=== PATIENT | female | born 1950 | race Caucasian/White ===

== ENCOUNTER 2023-02-19 11:00 | Emergency (ER) | payer MEDICARE, SELFPAY ==
--- NOTE | ~2023-02-19 | XR_ITS ---
Clinical Indication: Chest pain PA and lateral views of the chest: Comparison: None Findings: There is probable bibasilar atelectatic change. Calcified right upper lobe granuloma noted. Cardiomediastinal silhouette is within normal limits. Bones and soft tissues are unremarkable. Impression: Probable bibasilar atelectatic change. Reviewed, dictated and finalized at location . Impression: Probable bibasilar atelectatic change.
--- NOTE | ~2023-02-19 | CT_ITS ---
EXAMINATION: CTA chest abdomen DATE: 02/19/2023 15:15 INDICATION: Trauma. TECHNIQUE: Computed tomographic angiography (CTA) of the chest and abdomen was performed with 100 mL Omnipaque-350 intravenous contrast. The dose-length product was 1066.88 mGy-cm. Maximum intensity pro jection 3D-reconstructions of the aorta and other arteries were constructed by the technologist on a separate workstation. COMPARISON: None. FINDINGS: CHEST CTA: There is mild atherosclerosis. Heart size normal. No significant pleural or pericardial effusion. No large central pulmonary embolism.There is a 6 mm right upper lobe nodule. There is a 3 mm right middl e lobe nodule. There is dependent atelectasis. There are calcified granulomas of the right upper lobe . No evidence for aortic aneurysm or dissection. There are multiple ill-defined nodules of the left t hyroid lobe which is enlarged and contains coarse calcifications, consistent with multinodular goiter . Small hiatal hernia. ABDOMEN CTA: No evidence for aortic aneurysm or dissection. The celiac axis, SMA, renal arteries and EDMUND are paten t. Gallbladder is not identified, likely surgically absent. Fatty infiltration of the liver. The sple en contains multiple calcified granulomas. The pancreas is unremarkable. There are nonobstructing lef t renal stones. There is left renal cysts. There are irregular soft tissue masses in the mesentery me asuring up to 3.2 cm, image 184 and 4.1 cm, image 171. IMPRESSION: 1. No acute vascular abnormality. 2: Mesenteric soft tissue masses, largest measuring 4.1 cm. Differential diagnosis includes a static disease, lymphoma, carcinoid tumors, spindle cell tumors. 3: Right upper lobe nodule measuring 6 mm, follow-up low dose CT chest in 6 months recommended. Reviewed, dictated and finalized at location B. IMPRESSION: 1. No acute vascular abnormality. 2: Mesenteric soft tissue masses, largest measuring 4.1 cm. Differential diagno sis includes a static disease, lymphoma, carcinoid tumors, spindle cell tumors. 3: Right upper lobe nodule measuring 6 mm, follow-up low dose CT chest in 6 mo nths recommended.
[2023-02-19 11:11] VITALS: BP 136/89; PULSE 88; RESP 16; TEMP 35.5; O2SAT 95
--- NOTE | 2023-02-19 11:16 | ECG_ITS ---
Measurements Intervals [place] Rate: 91 P: 62 MN: 173 QRS: -58 QRSD: 92 T: 26 QT: 359 QTc: 442 Interpretive Statements SINUS RHYTHM POOR R-WAVE PROGRESSION CONSIDER PREVIOUS INFERIOR WALL [place] ABNORMAL ECG NO PREVIOUS ECG AVAILABLE FOR COMPARISON Electronically Signed On 02-19-2023 14:55:45 CDT by Arsh Segovia M.D.
[2023-02-19 11:31] LABS: Basophils Absolute Auto 0.1 K/mm3 (0.0-0.1); Basophils Percent Auto 0.4 % (0.2-1.2); Eosinophils Percent Auto 0.3 % (0-4.4); Hemoglobin 12.5 g/dL (12.0-15.0); Immature Granulocyte Absolute 0.05 K/mm3 (0.00-0.031); Immature Granulocyte Percent A 0.4 % (0-0.5); Lymphocytes Absolute Auto 1.12 K/mm3 (0.9-3.2); Lymphocytes Percent Auto 9.6 % (18.3-44.2); Mean Corpuscular HGB Conc 31.3 g/dl (32-36); Mean Corpuscular Hemoglobin 28.4 pg (26-34); Mean Corpuscular Volume 90.9 fl (80-100); Mean Platelet Volume 9.2 fl (7.4-10.4); Monocytes Absolute Auto 0.9 K/mm3 (0.1-0.6); Monocytes Percent Auto 7.5 % (2.6-8.5); Neutrophils Absolute Auto 9.5 K/mm3 (1.3-6.7); Neutrophils Percent Auto 81.8 % (45.5-73.1); Platelet Count Result 367 k/mm3 (150-375); Red Cell Distribution Width 16.2 % (11.5-14.5); White Blood Count 11.7 K/mm3 (4.5-10.0)
[2023-02-19 11:40] LABS: Alanine Aminotransferase 49 U/L (6-35); Albumin Level 4.4 g/dL (3.5-5.1); Alkaline Phosphatase 72 U/L (38-126); Anion Gap 8 mmol/L (8-16); Aspartate Amino Transferase 35 U/L (14-36); Bilirubin,Total 0.9 mg/dL (0.2-1.3); Blood Urea Nitrogen 28 mg/dL (7-17); Calcium 9.9 mg/dL (8.4-10.2); Carbon Dioxide 29 mmol/L (22-30); Chloride 99 mmol/L (98-107); Estimated CRCL calculation 64 ml/min; Estimated Glomerular Filt Rate > 60; Glucose 133 mg/dL (65-110); Lipase 45 U/L (23-300); Potassium 3.2 mmol/L (3.4-5.0); Sodium 136 mmol/L (137-145)
[2023-02-19 11:42] LABS: Prothrombin Time 13.8 Seconds (11.1-14.7)
[2023-02-19 11:43] LABS: Partial Thromboplastin Time 30.9 SECONDS (22.3-36.8)
[2023-02-19 11:52] LABS: Troponin I < 0.012 ng/mL (0.000-0.034)
--- NOTE | 2023-02-19 13:56 | ED.GENADULT ---
HPI - General Adult General Chief complaint: Chest Pain <Carmenza Delgado August, BUSINESS SUPPORT PROFESSIONAL - Last Filed: 02/19/23 14:00> Stated complaint: fall X2 in the last 3 days-rib pain <Carmenza Delgado August, BUSINESS SUPPORT PROFESSIONAL - Last Filed: 02/19/23 14:00> Time Seen by Provider: 02/19/23 14:26 <Carmenza Delgado August,N - Last Filed: 02/19/23 14:00> History of Present Illness HPI narrative: Lilly Rosario is a 72 y/o female with reported hx of osteo/ Crohns/ who presents with reports of two recent falls. She states that she h ad a mechanical ground level fall this last Sunday, felt a little pain but felt ok. She states that the following day she was limping from pain to her right hip and fell flat on her chest. She reports that ever since it has been hard to take a deep breath/ feels SOB. Her is with her who is a physician and he is concerned because her pain seemed worse today and would like CT of her chest to be sure. No abdominal pain/ nausea/vomiting/ fevers/ She denies hitting her head / no LOC / denies being on any blood thinner. <Carmenza Delgado August,N - Last Filed: 02/19/23 14:00> Related Data Allergies/adverse reactions: Allergies Allergy/AdvReac Type Severity Reaction Status Date / Time Penicillins Allergy Anaphylaxis Verified 02/19/23 11:01 <Carmenza Delgado August,N - Last Filed: 02/19/23 14:00> Review of Systems Review of Systems: All systems reviewed & are unremarkable except as noted in HPI and below <Stephanie Najera MD - Last Filed: 02/19/23 18:16> Exam Narrative: GENERAL: Well-appearing, no acute distress, very pleasant and cooperative HEAD: Normocephalic, atraumatic. EYES: PERRLA and EOMI. ENT: Grossly unremarkable NECK: Supple. CHEST: Clear to auscultation. No respiratory distress. HEART: Regular rate and rhythm. No murmur heard. Normal peripheral pulses. ABDOMEN: Soft, nontender, nondistended, normal active bowel sounds. EXTREMITIES: Normal range of motion. No edema. SKIN: Warm, dry, no rash. NEURO: No focal deficits. Alert and oriented x3. PSYCH: Normal mood and affect. <Stephanie Najera MD - Last Filed: 02/19/23 18:16> Course Vital Signs Vital signs: Vital Signs Temperature 96 F L 02/19/23 11:11 Pulse Rate 88 02/19/23 11:11 Respiratory Rate 16 02/19/23 11:11 Blood Pressure 136/89 02/19/23 11:11 Pulse Oximetry 95 02/19/23 11:11 Oxygen Delivery Room Air 02/19/23 11:11 Temperature 96 F L 02/19/23 11:11 Pulse Rate 78 02/19/23 15:07 Respiratory Rate 18 02/19/23 15:07 Blood Pressure 153/76 H 02/19/23 15:07 Pulse Oximetry 98 02/19/23 15:07 Oxygen Delivery Room Air 02/19/23 14:52 <Carmenza Singh, BUSINESS SUPPORT PROFESSIONAL - Last Filed: 02/19/23 14:00> Vital Signs Temperature 96 F L 02/19/23 11:11 Pulse Rate 88 02/19/23 11:11 Respiratory Rate 16 02/19/23 11:11 Blood Pressure 136/89 02/19/23 11:11 Pulse Oximetry 95 02/19/23 11:11 Oxygen Delivery Room Air 02/19/23 11:11 Temperature 96 F L 02/19/23 11:11 Pulse Rate 78 02/19/23 15:07 Respiratory Rate 18 02/19/23 15:07 Blood Pressure 153/76 H 02/19/23 15:07 Pulse Oximetry 98 02/19/23 15:07 Oxygen Delivery Room Air 02/19/23 14:52 <Stephanie Najera MD - Last Filed: 02/19/23 18:16> Medical Decision Making Vital Signs Vital Signs: Vital Signs Temperature 96 F L 02/19/23 11:11 Pulse Rate 88 02/19/23 11:11 Respiratory Rate 16 02/19/23 11:11 Blood Pressure 136/89 02/19/23 11:11 Pulse Oximetry 95 02/19/23 11:11 Oxygen Delivery Room Air 02/19/23 11:11 Temperature 96 F L 02/19/23 11:11 Pulse Rate 78 02/19/23 15:07 Respiratory Rate 18 02/19/23 15:07 Blood Pressure 153/76 H 02/19/23 15:07 Pulse Oximetry 98 02/19/23 15:07 Oxygen Delivery Room Air 02/19/23 14:52 <Carmenza Singh, BUSINESS SUPPORT PROFESSIONAL - Last Filed: 02/19/23 14:00> Vital Signs Temperature 96 F L 02/19/23 11:11 Pulse Rate 88 02/19/23 11:11 Respiratory Rate 16 02/19/
--- NOTE | 2023-02-19 14:51 | ED.CHESTPAIN ---
HPI - Chest Pain General Chief Complaint: Chest Pain Stated Complaint: fall X2 in the last 3 days-rib pain Time Seen by Provider: 02/19/23 14:26 History of Present Illness HPI narrative: Patient is a 72-year-old female with a history of Crohn's, osteoporosis presenting with chest pain. Patient states that she had 2 falls this last weekend. States that on Sunday she tripped and fell on her left side which resulted in residual left arm soreness. On Sunday she tripped again and she was unable to catch herself due to the pain in her left arm so she fell straight down onto her chest. She did not strike her head or lose consciousness. Since that time she has had worsening lower chest pain. Exacerbated by certain movements, coughing, deep breathing. She has been taking Aleve and some leftover Vicodin with some relief. Today the pain was more severe so she came in for evaluation. No fevers or chills, shortness of breath, leg swelling, abdominal pain, nausea or vomiting. No further complaints. Related Data Allergies Allergy/AdvReac Type Severity Reaction Status Date / Time Penicillins Allergy Anaphylaxis Verified 02/19/23 11:01 Review of Systems Review of Systems: All systems reviewed & are unremarkable except as noted in HPI and below Exam Narrative: GENERAL: Well-appearing, in no acute distress, pleasant and cooperative HEAD: Normocephalic, atraumatic. EYES: PERRLA and EOMI. ENT: Mucous membranes moist. NECK: Supple. CHEST: Clear to auscultation. No respiratory distress. Tenderness under bilateral breasts HEART: Regular rate and rhythm. ABDOMEN: Soft, nontender, nondistended EXTREMITIES: Normal range of motion. No edema. SKIN: Warm, dry, no rash. NEURO: No focal deficits. Alert and oriented x3. PSYCH: Normal mood and affect. Course Vital Signs Vital signs: Vital Signs Temperature 96 F L 02/19/23 11:11 Pulse Rate 88 02/19/23 11:11 Respiratory Rate 16 02/19/23 11:11 Blood Pressure 136/89 02/19/23 11:11 Pulse Oximetry 95 02/19/23 11:11 Oxygen Delivery Room Air 02/19/23 11:11 Temperature 96 F L 02/19/23 11:11 Pulse Rate 73 02/19/23 18:21 Respiratory Rate 16 02/19/23 18:21 Blood Pressure 149/69 H 10/23/23 18:21 Pulse Oximetry 97 02/19/23 18:21 Oxygen Delivery Room Air 02/19/23 14:52 MDM - Chest Pain MDM Narrative Medical decision making narrative: Patient is a 72-year-old female presenting with bilateral lower chest pain in the setting of a recent fall. Vital stable. Exam remarkable for the above. EKG per my interpretation shows normal sinus rhythm, left axis deviation, no ST elevations or depressions. Blood work with mild hypokalemia. Troponins undetectable. Lipase is normal. Chest x-ray without acute abnormalities. CTA chest abdomen obtained due to trauma. She does have acute fractures of her right seventh and eighth ribs anteriorly, consistent with her exam and her pain. They are also seeing mesenteric soft tissue masses. I spoke with the patient and her and they state that she had a CT scan about a year ago that did not show these masses. Patient does have a history of Crohn's disease, she follows very closely with GI in [place] which is where she lives. Patient will follow-up closely with her GI team regarding this finding. On reevaluation, she states that the pain is actually significantly improved. She feels comfortable going home. We will provide an incentive spirometer as well as prescription for Percocet. Strict return precautions given. Patient voiced understanding and is agreeable with plan. Discharged in stable condition. Differential Diagnosis Differential diagnosis: Likely fracture of rib, pneumothorax, atypical chest pain, costochondritis and chest pain Medical Records Data Attestation: I reviewed the patient's medical records. Lab Data Attestation: I reviewed the patient's lab results. 02/19/23 11:26 02/19/23 11:26
[2023-02-19 14:52] VITALS: PULSE 93; O2SAT 100
[2023-02-19] MEDS: KETOROLAC 30 MG/ML VIAL (*BKC) IV PUSH (14:59)
[2023-02-19] MEDS: SODIUM CHLORIDE 0.9% IV 1,000 ML 999 ML IV CONT (14:59)
[2023-02-19] MEDS: HYDROmorphone HCL INJ (*CRX) 1 MG/ML SYR IV PUSH (15:00)
[2023-02-19 15:07] VITALS: BP 153/76; PULSE 78; RESP 18; O2SAT 98
[2023-02-19 15:12] LABS: Troponin I < 0.012 ng/mL (0.000-0.034)
[2023-02-19] MEDS: oxyCODONE/ACETAMINOPHEN (*CRX) 5-325 MG TABLET 1 TABLET PO (18:19)
[2023-02-19 18:21] VITALS: BP 149/69; PULSE 73; RESP 16; O2SAT 97
== END 2023-02-19 19:00 | disposition home or self-care (01) ==
PROVIDERS: Emergency Medicine; Emergency Provider Emergency Medicine
DX: S22.41XA Multiple fractures of ribs, right side, initial encounter for closed fracture (principal); K66.8 Other specified disorders of peritoneum; K50.90 Crohn's disease, unspecified, without complications; M81.0 Age-related osteoporosis without current pathological fracture; R91.1 Solitary pulmonary nodule; R94.31 Abnormal electrocardiogram [ECG] [EKG]; W01.0XXA Fall on same level from slipping, tripping and stumbling without subsequent striking against object, initial encounter
CPT/HCPCS: 36415; 71046; 71275; 74175; 80053; 83690; 84484; 85025; 85610; 85730; 93005; 96361; 96374; 96375; 99284; A9270; J1170; J1885; J7030; Q9967